=== PATIENT | female | born 1950 | race Caucasian/White ===

== ENCOUNTER 2020-04-28 01:37 | Emergency (ER) | payer BC, MEDICARE ==
[~2020-04-28] VITALS: Ht 167.6 cm; Wt 68.0 kg
[2020-04-28 01:41] VITALS: BP 100/64
[2020-04-28] MEDS ORDERED: diphenhydrAMINE HCL 50 MG/ML VIAL ONE (01:41)
[2020-04-28] MEDS ORDERED: DEXAMETHASONE SOD PHOSPHATE 10 MG/ML VIAL ONE (01:41)
[2020-04-28] MEDS ORDERED: diphenhydrAMINE HCL 50 MG/ML VIAL IM ONE (02:00)
[2020-04-28] MEDS ORDERED: DEXAMETHASONE SOD PHOSPHATE 10 MG/ML VIAL IM ONE (02:00)
== END 2020-04-28 02:12 | disposition home or self-care (01) ==
LOC: ER 01:39
DX: T78.40XA Allergy, unspecified, initial encounter (principal); F17.200 Nicotine dependence, unspecified, uncomplicated; Z98.890 Other specified postprocedural states; Z60.2 Problems related to living alone; X58.XXXA Exposure to other specified factors, initial encounter
CPT/HCPCS: 96372 ×2; 99284; J1100; J1200

== ENCOUNTER 2020-05-19 04:49 | Emergency (ER) | payer BC ==
[~2020-05-19] VITALS: Ht 167.6 cm; Wt 68.0 kg
--- NOTE | 2020-05-19 05:02 | NUR ---
PT BIBS FOR C/O ALLERGIC REACTION FROM AN UNKNOWN CAUSE. PT STATES "I'M ITCHING ALL OVER AND MY MOUTH IS SORE". PT DENIES ANY SHORTNESS OF BREATH. SATTING 100% ON RA. PT CONNECTED TO THE PHYSICIAN EXECUTIVE AND POX
[2020-05-19] MEDS ORDERED: EPINEPHRINE (1:1000) 1 MG/ML AMPUL ONE (05:08)
[2020-05-19] MEDS ORDERED: DEXAMETHASONE SOD PHOSPHATE 10 MG/ML VIAL ONE (05:08)
[2020-05-19] MEDS ORDERED: FAMOTIDINE/PF INJ 20 MG/2 ML VIAL IV ONE ×2 (05:08→05:30)
[2020-05-19] MEDS ORDERED: diphenhydrAMINE HCL 50 MG/ML VIAL ONE (05:08)
[2020-05-19] MEDS ORDERED: diphenhydrAMINE HCL 50 MG/ML VIAL IV ONE (05:30)
[2020-05-19] MEDS ORDERED: DEXAMETHASONE SOD PHOSPHATE 10 MG/ML VIAL IV ONE (05:30)
[2020-05-19] MEDS ORDERED: EPINEPHRINE (1:1000) MDV 30 MG/30ML VIAL SUBCUT ONE (05:30)
--- NOTE | 2020-05-19 05:47 | NUR ---
PT STATES SHE FEELS BETTER. VSS. NO ACUTE DISTRESS NOTED. WILL MONITOR ACCORDINGLY
[2020-05-19 07:04] VITALS: BP 125/61
== END 2020-05-19 07:05 | disposition home or self-care (01) ==
LOC: ER 04:51
DX: L50.0 Allergic urticaria (principal); L53.9 Erythematous condition, unspecified; F17.210 Nicotine dependence, cigarettes, uncomplicated; Z90.710 Acquired absence of both cervix and uterus; Z98.890 Other specified postprocedural states; Z60.2 Problems related to living alone
CPT/HCPCS: 96372; 96374; 96375; 99284; 99406; J0171 ×2; J1100; J1200; J3490